=== PATIENT | male | born 1980 | race African-American/Black ===

== ENCOUNTER 2019-07-02 15:34 | Inpatient (IN) | payer SELFPAY ==
[~2019-07-02] VITALS: Ht 172.7 cm; Wt 84.8 kg
[2019-07-02] MEDS: D5 1/2NS 1,000 ML IV SCH (00:41)
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
[2019-07-02 15:51] VITALS: BP 133/78
--- NOTE | 2019-07-02 15:54 | NUR ---
ED Nurse Note: Dr. Long at bedside.
[2019-07-02] MEDS ORDERED: Omnipaque-300 100ml vial INJ PRN (16:00)
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
[2019-07-02 16:36] LABS: BASOPHILS % (AUTO) 1.7 % (0.0-2.0); EOSINOPHILS % (AUTO) 0.7 % (0.0-3.0); HEMATOCRIT 42.6 % (42.0-52.0); HEMOGLOBIN 13.4 G/DL (14.2-18.0); LYMPHOCYTES % (AUTO) 32.6 % (20.0-45.0); MEAN CORPUSCULAR VOLUME 89 FL (80-99); MONOCYTES % (AUTO) 5.3 % (1.0-10.0); NEUTROPHILS % (AUTO) 59.8 % (45.0-75.0); PLATELET COUNT 256 K/UL (150-450); RED BLOOD COUNT 4.81 M/UL (4.70-6.10); RED CELL DISTRIBUTION WIDTH 13.2 % (11.6-14.8); WHITE BLOOD COUNT 7.2 K/UL (4.8-10.8)
--- NOTE | 2019-07-02 16:37 | NUR ---
ED Nurse Note: pt's unable to urinate at this time.
[2019-07-02 16:51] LABS: ANION GAP 7 mmol/L (5-15); BLOOD UREA NITROGEN 11 mg/dL (7-18); CALCIUM 9.7 MG/DL (8.5-10.1); CARBON DIOXIDE 32 MMOL/L (21-32); CHLORIDE 109 MMOL/L (98-107); CREATININE 1.2 MG/DL (0.55-1.30); POTASSIUM 5.2 MMOL/L (3.5-5.1); SODIUM 148 MMOL/L (136-145)
[2019-07-02 16:54] LABS: ALANINE AMINOTRANSFERASE 38 U/L (12-78); ALBUMIN 4.2 G/DL (3.4-5.0); ALBUMIN/GLOBULIN RATIO 1.1 (1.0-2.7); ALKALINE PHOSPHATASE 70 U/L (46-116); ASPARTATE AMINO TRANSFERASE 30 U/L (15-37); BILIRUBIN,TOTAL 0.2 MG/DL (0.2-1.0)
--- NOTE | 2019-07-02 17:26 | Diagnostic Imaging Report ---
EXAM: CT Abdomen and Pelvis With Intravenous Contrast CLINICAL HISTORY: ABD PAIN TECHNIQUE: Axial computed tomography images of the abdomen and pelvis with intravenous contrast. CTDI is 5.0 mGy and DLP is 262.8 mGy-cm. One or more of the following dose reduction techniques were used: automated exposure control, adjustment of the mA and/or kV according to patient size, use of iterative reconstruction technique. COMPARISON: None FINDINGS: Lung bases: Unremarkable. No mass. No consolidation. ABDOMEN: Liver: Unremarkable. No mass. Gallbladder and bile ducts: Unremarkable. No calcified stones. No ductal dilation. Pancreas: Unremarkable. No mass. No ductal dilation. Spleen: Unremarkable. No splenomegaly. Adrenals: Unremarkable. No mass. Kidneys and ureters: No hydronephrosis or obstructing stone. Stomach and bowel: Stomach is distended with ingested material, fluid, and gas. Question recent meal versus gastric outlet obstruction. No small bowel obstruction. No mucosal thickening. PELVIS: Appendix: No findings to suggest acute appendicitis. Bladder: Unremarkable. No mass. Reproductive: Unremarkable as visualized. ABDOMEN and PELVIS: Intraperitoneal space: Unremarkable. No free air. No significant fluid collection. Bones/joints: No acute fracture. No dislocation. Soft tissues: Fluid collection in the left lateral abdominal wall subcutaneous fat measures approximately 2.1 x 4.5 x 2.9 cm. Surrounding fat stranding. Findings may represent cellulitis with developing abscess versus present and hematoma. Please correlate with clinical history. Vasculature: Unremarkable. No abdominal aortic aneurysm. Lymph nodes: Unremarkable. No enlarged lymph nodes. Other findings: Elevation of the right hemidiaphragm. IMPRESSION: 1. Stomach is distended with ingested material, fluid, and gas. Question recent meal versus gastric outlet obstruction. 2. Fluid collection in the left lateral abdominal wall subcutaneous fat measures approximately 2.1 x 4.5 x 2.9 cm. Surrounding fat stranding. Findings may represent cellulitis with developing abscess versus present and hematoma. Please correlate with clinical history.
[2019-07-02] MEDS ORDERED: Vancomycin 1.5 GM in NS 275 ML IVPB ONE (17:45)
--- NOTE | 2019-07-02 18:20 | NUR ---
ED Nurse Note: Pt not stating if he is taking any medications.
--- NOTE | 2019-07-02 19:09 | NUR ---
HAND-OFF: Report given to Phuong KUMAR for continuity of care.
--- NOTE | 2019-07-02 19:30 | NUR ---
ED Nurse Note: pt received from Mireille Gray RN. pt resting in bed, no acute distress noted. breathing is even and non-labored. pt provided with extra blankets and pillow for comfort. pt is still unable to provide urine sample at this time, being kept NPO per ERMD orders
[2019-07-02 19:32] VITALS: BP 137/84
--- NOTE | 2019-07-02 20:15 | NUR ---
ED Nurse Note: pt able to provide 100 mL of urine, obtained and sent to lab
[2019-07-02] MEDS ORDERED: Morphine Sulfate 4mg/ml Inj (IV USE ONLY) IVP ONE (20:30)
[2019-07-02 21:02] LABS: APPEARANCE,URINE CLEAR; BILIRUBIN, URINE NEGATIVE (NEGATIVE); COLOR,URINE PALE YELLOW; GLUCOSE, URINE (UA) NEGATIVE (NEGATIVE); KETONES,URINE NEGATIVE (NEGATIVE); LEUKOCYTE ESTERASE ,URINE NEGATIVE (NEGATIVE); NITRITE,URINE NEGATIVE (NEGATIVE); PH,URINE 5 (4.5-8.0); PROTEIN,URINE 2+ (NEGATIVE); UROBILINOGEN,URINE NORMAL MG/DL (0.0-1.0)
--- NOTE | 2019-07-02 21:30 | NUR ---
ED Nurse Note: report given to STACY Barahona
--- NOTE | 2019-07-02 21:30 | NUR ---
ED Nurse Note: pt has been educated on NPO orders, pt was found to be eating a sandwich from his personal bag. when told about NPO orders pt became agressive stating he was hungry. pt is ready for admission
--- NOTE | 2019-07-02 22:30 | NUR ---
NURSE NOTES: Receive pt from the emergency department. pt is A&Ox4, ambulatory , and on room air. Pt has no fever,sob, and cough. Pt vital signs are stable. Pt has Right AC 20g iv. Pt skin is intact. Pt is Npo but nurse Phuong from the er notified me the pt ate a sandwich from his bag. Bed in the lower position, locked and call call light within reach. We will keep monitoring the pt.
[2019-07-02] MEDS ORDERED: Milk of Magnesia 30ml Ud ORAL PRN (22:45)
[2019-07-02] MEDS ORDERED: Morphine Sulfate 2mg/ml Inj(IV/IM USE ONLY) IVP PRN (22:45)
[2019-07-02] MEDS ORDERED: Morphine Sulfate 4mg/ml Inj (IV USE ONLY) IVP PRN (22:45)
[2019-07-02] MEDS ORDERED: Zolpidem 5mg tab ORAL PRN (22:45)
[2019-07-03] VITALS (14 sets, daily range): BP systolic 81–120; BP diastolic 36–89
[2019-07-03] MEDS: D5 1/2NS 1,000 ML IV SCH ×2 (00:41→13:01)
[2019-07-03] MEDS: Zoysn 3.37gm in NS 100ML IVPB SCH ×3 (00:41→17:28)
[2019-07-03] MEDS ORDERED: Piperacillin/Tazobactam 2.25 GM in D5W 55 ML IVPB SCH (06:00)
[2019-07-03] MEDS: Vancomycin 1.5 GM in NS 275 ML IVPB SCH ×2 (06:04→17:27)
--- NOTE | 2019-07-03 07:40 | NUR ---
HAND-OFF: Report given to STACY Mckenna.
--- NOTE | 2019-07-03 08:03 | NUR ---
NURSE NOTES: Report received from Jun KUMAR. Patient seen on rounds asleep but easily rousable. AxO4, not in distress, no c/o pain at this time. PIV on right AC patent and intact. Nurse reports that patient refused skin assessment last night, will reattempt today. Bed low and locked, siderails up x2, zone alarm on 1, call light within reach and instructed to call nurse for assistance. Will continue to monitor and implement plan of care.
[2019-07-03] MEDS ORDERED: Bacitracin Oint 15gm Tube TOPIC ONE (11:58)
[2019-07-03] MEDS ORDERED: Bacitracin 50000 Units Vial ONE (11:58)
[2019-07-03] MEDS ORDERED: NS Irrig 1000ml ONE (12:00)
[2019-07-03] MEDS ORDERED: LR 1000ml ONE (12:00)
[2019-07-03] MEDS ORDERED: Sterile Water Irrig 1000ml IRRIG ONE (12:00)
--- NOTE | 2019-07-03 12:01 | NUR ---
NURSE NOTES: Patient transported to OR for scheduled procedure incision and drainage collection left flank, consent signed, vitals stable prior to transfer, IV line patent on right AC. ID band on. Checklist done.
--- NOTE | 2019-07-03 12:09 | Pre-Procedure Note/Attestation ---
Pre-Procedure Note/Attestation Complete Prior to Procedure Planned Procedure: left Procedure Narrative: incision and drainage of collection left flank Indications for Procedure Pre-Operative Diagnosis: fluid collection left flank possible abscess Attestation I attest that I discussed the nature of the procedure; its benefits; risks and complications; and alternatives (and the risks and benefits of such alternatives ), prior to the procedure, with the patient (or the patient's legal franchise sales representative). I attest that, if there was a reasonable possibility of needing a blood transfusion, the patient (or the patient's legal franchise sales representative) was given the [facility] standardized written summary, pursuant to the Jeevan Meño Blood Safety Act ([place] Health and Safety Code # 1645, as amended). I attest that I re-evaluated the patient just prior to the surgery and that there has been no change in the patient's H&P, except as documented below: Jose Guerrero MD July 03, 2019 12:09
[2019-07-03] MEDS ORDERED: Rocuronium Bromide 50mg/5ml Inj IV ONE (12:30)
[2019-07-03] MEDS ORDERED: fentaNYL 100 mcg/2 mL IV ONE (12:39)
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
--- NOTE | 2019-07-03 12:51 | Brief Operative Note ---
Immediate Post Operative Note Operative Note Pre-op Diagnosis: fluid collection left flank possible abscess Procedure: drainage of seruma Post-op Diagnosis: sub-cutaneous seruma Surgeon: Jose Luis Vacation Planner: none Anesthesiologist: Dr. Agee Anesthesia: general Specimen: none Complications: none Condition: stable Fluids: per anesthesiologist Estimated Blood Loss: none Drains: none Implant(s) used?: No Jose Guerrero MD July 03, 2019 12:51
--- NOTE | 2019-07-03 12:57 | Anethesia Preoperative Eval ---
Anesthesia Pre-op PMH/ROS General Date of Evaluation: July 03, 2019 Time of Evaluation: 12:00 ASA Score: ASA 4 Mallampati Score Class I : Soft palate, uvula, fauces, pillars visible Class II: Soft palate, uvula, fauces visible Class III: Soft palate, base of uvula visible Class IV: Only hard plate visible Mallampati Classification: Class II Allergies: Coded Allergies: No Known Allergies (Unverified , 07/02/19) Patient NPO?: Yes Anesthesia Pre-op Phys. Exam Physician Exam Last Vital Signs Date Time Temp Pulse Resp B/P (MAP) Pulse Ox O2 Delivery O2 Flow Rate FiO2 07/03/19 09:00 Room Air 07/03/19 08:00 97.9 67 18 120/47 (71) 99 Airway Exam Mallampati Score: Class I Anesthesia Pre-op A/P Labs Hematology Test 07/02/19 16:05 White Blood Count 7.2 K/UL (4.8-10.8) Red Blood Count 4.81 M/UL (4.70-6.10) Hemoglobin 13.4 G/DL (14.2-18.0) L Hematocrit 42.6 % (42.0-52.0) Mean Corpuscular Volume 89 FL (80-99) Mean Corpuscular Hemoglobin 27.9 PG (27.0-31.0) Mean Corpuscular Hemoglobin Concent 31.6 G/DL (32.0-36.0) L Red Cell Distribution Width 13.2 % (11.6-14.8) Platelet Count 256 K/UL (150-450) Mean Platelet Volume 5.8 FL (6.5-10.1) L Neutrophils (%) (Auto) 59.8 % (45.0-75.0) Lymphocytes (%) (Auto) 32.6 % (20.0-45.0) Monocytes (%) (Auto) 5.3 % (1.0-10.0) Eosinophils (%) (Auto) 0.7 % (0.0-3.0) Basophils (%) (Auto) 1.7 % (0.0-2.0) Chemistry Test 07/02/19 16:05 Sodium Level 148 MMOL/L (136-145) H Potassium Level 5.2 MMOL/L (3.5-5.1) H Chloride Level 109 MMOL/L (98-107) H Carbon Dioxide Level 32 MMOL/L (21-32) Anion Gap 7 mmol/L (5-15) Blood Urea Nitrogen 11 mg/dL (7-18) Creatinine 1.2 MG/DL (0.55-1.30) Estimat Glomerular Filtration Rate > 60 mL/min (>60) Glucose Level 144 MG/DL (74-106) H Calcium Level 9.7 MG/DL (8.5-10.1) Total Bilirubin 0.2 MG/DL (0.2-1.0) Aspartate Amino Transf (AST/SGOT) 30 U/L (15-37) Alanine Aminotransferase (ALT/SGPT) 38 U/L (12-78) Alkaline Phosphatase 70 U/L (46-116) Total Protein 8.0 G/DL (6.4-8.2) Albumin 4.2 G/DL (3.4-5.0) Globulin 3.8 g/dL Albumin/Globulin Ratio 1.1 (1.0-2.7) Lipase 93 U/L (73-393) Deedee Farooq MD July 03, 2019 12:57
--- NOTE | 2019-07-03 12:57 | Immediate Post-Op Evaluation ---
Immediate Post-Op Evalulation Immediate Post-Op Evalulation Procedure: IND ABD abscess Nausea: No Vomiting: No Deedee Farooq MD July 03, 2019 12:57
[2019-07-03] MEDS ORDERED: traMADol 50mg tab ORAL PRN (13:00)
[2019-07-03] MEDS ORDERED: D5 1/2NS w/KCl 20mEq 1,000 ML IV SCH (14:00)
--- NOTE | 2019-07-03 14:00 | NUR ---
NURSE NOTES: Richa KUMAR brought patient by bed in stable condition. Alert and oriented x4. Complain of pain 7/10 on surgical site. Will administer pain medication as ordered. IV dressing intact and dry. Surgical dressing intact and dry. Bed lowest position. Call light within reach. Will continue to monitor.
--- NOTE | 2019-07-03 15:28 | NUR ---
HAND-OFF: Report given to Sam. Patient transferred to 3E post surgery. Belongings brought down and accounted for.
--- NOTE | 2019-07-03 19:47 | NUR ---
HAND-OFF: Report given to STACY Bell pt is stable condition.
--- NOTE | 2019-07-03 20:15 | NUR ---
NURSE NOTES: Received patient in bed, awake, alert, oriented x4, able to make his needs known, IV site is clean dry and intact, no acute distress noted, call light is within reach, bed is lowered, locked, alarm is on. Will continue to monitor for comfort and safety.
--- NOTE | 2019-07-03 23:59 | History and Physical Report ---
DATE OF ADMISSION: 07/02/2019 CHIEF COMPLAINT: The patient has pain in the left flank and has developed an abscess. HISTORY OF PRESENT ILLNESS: This is a 38-year-old male who was arrested about 2 weeks ago. He said that he felt some pain in his left flank when he was being arrested. He was in custodial for about 5 days and then he was released and then he noticed that there was swelling and pain in the left flank. He finally came to the emergency room. He was admitted for diagnosis of the abscess. PAST MEDICAL HISTORY: Reported history of bipolar disorder. ALLERGIES: No known drug allergies. SOCIAL HISTORY: The patient is homeless. He usually smokes methamphetamine. REVIEW OF SYSTEMS: As above. PHYSICAL EXAMINATION: GENERAL: The patient is a 38-year-old male, in no acute distress. VITAL SIGNS: Blood pressure is 120/47, pulse 67, temperature 97.9, and respirations 18. HEENT: [place] conjunctivae. Anicteric sclerae. NECK: Supple. LUNGS: Clear to auscultation. HEART: S1, S2 without murmurs or rubs. ABDOMEN: Soft, nontender. The left flank has swelling and some ulceration consistent with an abscess. LABORATORY DATA: CBC shows a WBC of 7200, hematocrit 42.6, hemoglobin is 13.4, platelet is 256,000. Chemistry panel shows serum sodium 148, potassium 5.2, chloride is 109, BUN is 11, creatinine 1.2. UA is unremarkable. The patient also had a CT of the abdomen, showed stomach was distended with ingested material, fluid, and gas, question of gastric outlet obstruction. Fluid collection in the left lateral abdominal wall. Subcutaneous fat measures 2.1 x 4.5 x 2.9 cm. There is surrounding fat stranding. Findings may represent cellulitis and developing abscess versus hematoma. ASSESSMENT: This is a 38-year-old male who was admitted with left flank pain and swelling and diagnosed with an abscess. There is a finding on the CT scan, possibly gastric outlet obstruction, although I doubt. PLAN: The patient was started on IV antibiotics. He will be on IV fluid. The patient is going for surgery to open the abscess today. Labs will be followed and further adjustment will be made in this patient's regimen. Shashank Fuller M.D. DR: Chris JOB#: [id number] CC: KEIKO
[2019-07-04] MEDS: Zoysn 3.37gm in NS 100ML IVPB SCH ×3 (00:05→16:30)
[2019-07-04 00:32] VITALS: BP 139/74
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
[2019-07-04] MEDS: D5 1/2NS 1,000 ML IV SCH ×2 (02:21→15:41)
[2019-07-04 04:00] VITALS: BP 118/74
[2019-07-04] MEDS: Vancomycin 1.5 GM in NS 275 ML IVPB SCH (06:02)
--- NOTE | 2019-07-04 07:31 | NUR ---
HAND-OFF: Report given to Meño KUMAR.
[2019-07-04 08:00] VITALS: BP 126/70
--- NOTE | 2019-07-04 08:00 | NUR ---
NURSE NOTES: Received report Arabella KUMAR, pt a/a/o x4 laying in bed with no signs of distress or other issues at this time. IV on the right AC gauge #20. running D5 1/2 NS@75ml/hr. surgical dressing dry and intact with 2x2 and tegaderm. call light within reach, bed in lowest position. side rales up x2. I will f/u as needed.
[2019-07-04] MEDS: Levofloxacin 500mg tab ORAL SCH (09:13)
[2019-07-04 12:00] VITALS: BP 125/67
--- NOTE | 2019-07-04 13:44 | General Progress Note ---
Assessment/Plan Problem List: (1) serum collection (2) Abscess ICD Codes: L02.91 - Cutaneous abscess, unspecified SNOMED: 966578400 Assessment/Plan: Regular diet await cultures abxs Discussed with RN Subjective Allergies: Coded Allergies: No Known Allergies (Unverified , 07/02/19) Subjective feels ok Objective Last 24 Hour Vital Signs Date Time Temp Pulse Resp B/P (MAP) Pulse Ox O2 Delivery O2 Flow Rate FiO2 07/04/19 12:00 98.1 79 22 125/67 (86) 99 07/04/19 09:00 Room Air 07/04/19 08:00 98.4 69 21 126/70 (88) 100 07/04/19 04:00 98.9 74 18 118/74 (89) 98 07/04/19 00:32 97.8 68 18 139/74 (95) 98 07/03/19 21:40 Room Air 07/03/19 20:00 98.2 79 17 106/51 (69) 96 07/03/19 16:00 98.2 88 22 108/78 (88) 100 07/03/19 14:30 97.4 58 18 116/67 (83) 100 07/03/19 14:00 97.3 49 18 109/62 (78) 100 07/03/19 13:50 97.9 57 16 116/59 100 Nasal Cannula 3 Intake and Output 07/03/19 07/04/19 19:00 07:00 Intake Total 700 ml Output Total 10 ml 1200 ml Balance 690 ml -1200 ml Intake Oral 400 ml IV Total 300 ml Output Urine Total 1200 ml Estimated Blood Loss 10 ml Height (Feet): 5 Height (Inches): 8.00 Weight (Pounds): 187 Cardiovascular: normal rate Respiratory/Chest: lungs clear Edema: no edema noted Generalized Shashank Fuller MD July 04, 2019 13:44
[2019-07-04 16:00] VITALS: BP 108/70
--- NOTE | 2019-07-04 17:14 | NUR ---
NURSE NOTES: Patient REFUSED labs drawn since he stated he is been discharge. RN explained risk and benefits, patient verbalize understanding and still REFUSED lab drawn.
--- NOTE | 2019-07-04 19:16 | NUR ---
HAND-OFF: Report given to Cristobal KUMAR, pt in stable condition. - per patient, his uncle will help by a ticket to [place] tomorrow morning. patient is aware that he is discharge.
--- NOTE | 2019-07-04 19:20 | NUR ---
NURSE NOTES: Received report from STACY Wilder. Patient in stable condition.
[2019-07-04 20:00] VITALS: BP 123/69
[2019-07-04] MEDS: Doxycycline Monohydrate 100mg ORAL SCH (20:51)
[2019-07-05] VITALS: BP 117/62
[2019-07-05] MEDS: D5 1/2NS 1,000 ML IV SCH (05:01)
--- NOTE | 2019-07-05 07:34 | NUR ---
HAND-OFF: Report given to STACY Becker.
--- NOTE | 2019-07-05 08:00 | NUR ---
NURSE NOTES: Pt awake/alert in bed with sheet pulled up over face, breathing easily on room air, denies SOB and denies pain at this time. Vital signs stable. Pt moving all extremities well. Incision on right abdomen midaxillary slightly tender to touch but no drainage and good skin color. IV access RAC with D5 1/2 NS running at 75 ml/hr stopped because pt want to go walk. Bed left in low position, side rails up x 2and call light left near pt's hand. Pt seen walking around floor then disappeared. Upon search pt found walking in front entrance having gone outside to try and smoke. Pt escorted back to room.
[2019-07-05] MEDS: Doxycycline Monohydrate 100mg ORAL SCH ×2 (09:00→21:06)
[2019-07-05] MEDS: Levofloxacin 500mg tab ORAL SCH (09:00)
--- NOTE | 2019-07-05 10:52 | 48 Hour Post Anesthesia Eval ---
Post Anesthesia Evaluation Procedure: IND ABD abscess Date of Evaluation: July 05, 2019 Time of Evaluation: 10:51 Blood Pressure Systolic: 124 0: 72 Pulse Rate: 68 Respiratory Rate: 20 Temperature (Fahrenheit): 97.4 O2 Sat by Pulse Oximetry: 98 Airway: patent Nausea: No Vomiting: No Pain Intensity: 2 Hydration Status: adequate Cardiopulmonary Status: stable Mental Status/LOC: patient returned to baseline Follow-up Care/Observations: n/a Post-Anesthesia Complications: none Follow-up care needed: N/A Pro Guzman MD July 05, 2019 10:52
--- NOTE | 2019-07-05 12:27 | NUR ---
DISCHARGE PLANNING: PATIENT FROM THE [facility] PATIENT EXPRESSED TO THAT HE HAS NO PLACE TO LIVE CM CALLED MOTHER (T: [phone])
--- NOTE | 2019-07-05 13:15 | NUR ---
DISCHARGE PLANNING: CM SPOKE WITH PATIENT AT BEDSIDE PATIENT STATES HE IS HOMELESS AT THIS TIME PATIENT STATED THAT JAYE HUNT IS PROVIDING PATIENT WITH A LIST OF SHELTERS
--- NOTE | 2019-07-05 13:43 | NUR ---
Social Work This SW received notification from Yaneth Westfall for possible homelessness. This sW met with patient who remains alert/oriented, making own decisions, independent (does not require any DME). Patient explains he is from [facility], was looking for his family here. Patient explains he was unable to locate family and planning to return to [facility] (friend will leave [facility] at 5 PM) to bring him back. Homeless resources provided as needed. No other needs/concerns at this time.
--- NOTE | 2019-07-05 13:54 | NUR ---
NURSE NOTES: Call placed to Dr Deejay Fuller regarding safe discharge for pt. Pt's friends will pick him up tonight and take him back to [facility]. Need d/c order. Message left with office staff.
[2019-07-05] MEDS ORDERED: DOXYCYCLINE MO100 MG ORAL (14:18)
--- NOTE | 2019-07-05 14:22 | General Progress Note ---
Assessment/Plan Problem List: (1) serum collection (2) Abscess ICD Codes: L02.91 - Cutaneous abscess, unspecified SNOMED: [id number] Assessment/Plan: Dc on Doxycycline Subjective Allergies: Coded Allergies: No Known Allergies (Unverified , 07/02/19) Subjective feels ok Objective Last 24 Hour Vital Signs Date Time Temp Pulse Resp B/P (MAP) Pulse Ox O2 Delivery O2 Flow Rate FiO2 07/05/19 10:52 68 20 98 07/05/19 08:34 Room Air 07/05/19 00:00 97.7 60 18 117/62 (80) 98 07/04/19 21:00 Room Air 07/04/19 20:00 98.0 70 18 123/69 (87) 98 07/04/19 16:00 98.0 69 22 108/70 (83) 99 Intake and Output 07/04/19 07/05/19 19:00 07:00 Intake Total 500 ml Balance 500 ml Intake Oral 500 ml # Voids 3 4 Height (Feet): 5 Height (Inches): 8.00 Weight (Pounds): 187 Shashank Fuller MD July 05, 2019 14:22
[2019-07-05 16:50] VITALS: BP 122/65
[2019-07-06] VITALS: BP 113/70
--- NOTE | 2019-07-06 00:38 | NUR ---
NURSE NOTES: Report received from STACY Becker. Patient pending discharge and was supposed to be picked up by family to to be brought back to [place] later tonight.
--- NOTE | 2019-07-06 00:39 | NUR ---
NURSE NOTES: At 1999, patient informed me that he cannot be picked up till tomorrow in the morning around 9-930 am. He said that his friend was too tired to travel from [place] to pick him up. Dr. Fuller informed and left message in his voicemail.
--- NOTE | 2019-07-06 07:32 | NUR ---
HAND-OFF: Report given to STACY [facility]. Patient in stable condition.
--- NOTE | 2019-07-06 07:45 | NUR ---
NURSE NOTES: Received report from Cristobal KUMAR. Patient is awake and alert, no signs of distress noted. Right AC IV is patent and saline locked. Dressing is dry and intact. Patient requesting to speak to high school social studies tutor before leaving today. Bed is low and locked, side rails up x2, call light within reach.
[2019-07-06 08:00] VITALS: BP 120/68
[2019-07-06] MEDS: Doxycycline Monohydrate 100mg ORAL SCH (08:46)
[2019-07-06] MEDS: Levofloxacin 500mg tab ORAL SCH (08:46)
--- NOTE | 2019-07-06 10:04 | NUR ---
MANAGER ASSURANCE NOTE SW met w/ pt to assess his needs. PT reports he does have a place to stay in [place] but pt did not provide the exact address/location. Pt requested this SW to contact his friends Avery [phone] and Raymond [phone] if they could pay for this bus ticket from [place] to . SW left vms to his friends. SW informed such attempt to pt. SW provided a list of homeless agencies: [facility] and two locations of [facility] in [place], [place]. SW encouraged pt to visit such agencies and start case management. SW provided the addresses, phone numbers and maps. Pt agreed to be discharged w/ leslee coley. Pt did not disclose which agency he will visit first. Pt to be discharged his preferred location. Pt is ambulatory, A&O4x and independent. Pt has appropriate clothing. Addendum: 07/06/19 at 1011 by ELIER CEE JAYE also provided the community resource packet including list of emergency shelters, homeless resources.
--- NOTE | 2019-07-06 10:40 | NUR ---
NURSE NOTES: Patient left 3E safely, able to ambulate on his own. Patient's belongings were verified, patient information provided, IV and armband removed. Patient stated that he has friends in the [place] area that he can contact. The patient's questions about his stay and his condition were answered. Patient was provided with a bus pass.
--- NOTE | 2019-07-08 13:36 | Discharge Summary ---
Discharge Summary Discharge Summary _ DATE OF ADMISSION: 07/02/2019 DATE OF DISCHARGE: 07/06/2019 DISCHARGED BY: Dr. Shashank Fuller REASON FOR ADMISSION: 38 years old male with past medical history of bipolar disorder, presented for evaluation of abdominal pain for 1 week. He reported pain and swelling over the left lower abdomen. According to patient he was taking down aggressively during his arrest , and he sustained an abrasion versus possible puncture wound at that site. He did not seek medical attention at that time since he had been incarcerated. He was complaining of worsening pain. He denied fever and chills. He denied nausea ,vomiting ,diarrhea. No dysuria, hematuria or other injury. Patient was also complained of some epigastric discomfort for 1 day after smoking unknown substance. Patient reported he was using it to control his pain. Upon evaluation vital signs were stable. Laboratory work-up revealed no leukocytosis, hemoglobin 13.4, hematocrit 42.6, platelet count 256. Sodium 140 , potassium 5.2. BUN 11, creatinine 1.2. Stable LFT. Urine tox screen revealed was positive for amphetamine. Serum alcohol less than 3 . Urinalysis revealed +2 protein, no evidence of urinary tract infection. CT of the abdomen and pelvis demonstrated distended stomach with ingested material, fluid and gas. Raised question of recent meal versus gastric outlet obstruction. Fluid collection in the left lateral abdominal wall measuring 2.1 x 4.5 x 2.9 cm with surrounding fat stranding findings may represent cellulitis with developing abscess versus hematoma. In emergency department patient received empiric antibiotics , was kept n.p.o. , started on IV fluid , and admitted to medical surgical floor . Surgeon contacted for possible surgical intervention. CONSULTANTS: surgery [facility] COURSE: Patient admitted to medical surgical floor . patient was kept n.p.o. and on empiric antibiotic. Surgeon seen and evaluated the patient. Patient subsequently undergone drainage of seroma on 06/22. Patient tolerated procedure well. Postoperatively pain management was addressed. pain was controlled, Antibiotics continued. Intraoperative aerobic culture revealed no growth. Patient slowly started on diet as tolerated. Patient was able to tolerate diet. Patient voided without difficulty. No difficulty with ambulation. Supportive care provided. Patient clinically stabilized and was ready for discharge home. Antibiotics changed to oral to complete the course as outpatient. FINAL DIAGNOSES: Intraabdominal fluid collection Abscess Seroma Status post drainage of seroma/abscess Amphetamine abuse DISCHARGE MEDICATIONS: See Medication Reconciliation list. DISCHARGE INSTRUCTIONS: Patient was discharged home. Follow-up with a primary care provider in 1 to 2 weeks. Patient was advised on abstinence from illicit street drugs. I have been assigned to dictate discharge summary for this account. I was not involved in the patient's management. Ita Stone NP July 08, 2019 13:36
--- NOTE | 2019-07-08 16:49 | NUR ---
CASE MANAGEMENT: INITIAL REVIEW 38YR OLD MALE BIBA FROM HOME CC: ABDOMINAL PAIN SI:ABSCESS 96.2 53 16 133/78 98% ON RA NA+ 148 K+ 5.8 CL 109 BG 144 IS: IV VANCOMYCIN X1 IV NS BOLUS X2 IV MORPHINE SULFATE X1 CT ABD PEL WITH CONTRAST - 1. Stomach is distended with ingested material, fluid, and gas. Question recent meal versus gastric outlet obstruction. 2. Fluid collection in the left lateral abdominal wall subcutaneous fat measures approximately 2.1 x 4.5 x 2.9 cm. Surrounding fat stranding. Findings may represent cellulitis with developing abscess versus present and hematoma. Please correlate with clinical history. \: 3E MED SURG UNIT DCP: HOME STABLE CASE MANAGEMENT: REVIEW 07/03/19 SI:ABSCESS 98.2 79 17 106/51 96% ON RA IS: IV ZOSYN TID IV VANCOMYCIN BID PEPCID PO BID \: 3E MED SURG UNIT DCP: HOME STABLE PLAN: HOMELESS FROM [facility] CASE MANAGEMENT: REVIEW 07/04/19 SI:ABSCESS 98.0 70 18 123/69 98% ON RA IS: IV ZOSYN TID IV VANCOMYCIN BID PEPCID PO BID \: 3E MED SURG UNIT DCP: HOME STABLE PLAN: HOMELESS FROM [facility] FRIEND TO [employer]INE[employer] PATIENT TONIGHT CASE MANAGEMENT: REVIEW 07/05/19 SI:ABSCESS 98.1 76 18 122/65 97% ON RA IS: IV ZOSYN TID IV VANCOMYCIN BID PEPCID PO BID \: 3E MED SURG UNIT DCP: HOME STABLE TO [facility] PLAN: FRIEND UNABLE TO [employer]HW[employer] DES[employer] ENGINE[employer] PATIENT 07/04 DC HOME WHEN FRIEND PICKS HIM UP 07/05
== END 2019-07-06 10:40 | disposition home or self-care (01) | DRG 603 ==
LOC: EDBD 15:34 → EMR 15:50 → 4E 17:55 → EDBEDREQ 20:48 → 3E 07-03 14:00
PROC: 0J983ZZ Drainage of Abdomen Subcutaneous Tissue and Fascia, Percutaneous Approach (ICD-10-PCS; principal; 2019-07-03 11:30)
DX: L02.211 Cutaneous abscess of abdominal wall (principal); S30.1XXA Contusion of abdominal wall, initial encounter; F31.9 Bipolar disorder, unspecified; Z59.0 Homelessness; F15.10 Other stimulant abuse, uncomplicated; Y35.813A Legal intervention involving manhandling, suspect injured, initial encounter
CPT/HCPCS: 36415; 74177; 80053; 80307; 81003; 83690; 85025; 87070; 87075; 87205; 94003; 94150; 96361; 96365; 96375; 99285; G0480; J7030